=== PATIENT | female | born 1975 | race Caucasian/White ===

== ENCOUNTER → 2016-10-26 | Outpatient (CLI) | payer BC ==
--- NOTE | 2016-10-26 10:24 | MA ---
Screening Digital Mammogram With iCAD Analysis Clinical Indications: Routine screening. Her mother was diagnosed with breast cancer in her 50s. Technique: Standard cephalocaudal and mediolateral oblique projections were obtained. This examinatio n was processed by the iCAD computer aided detection system. Comparison: July 2014 and February 2009. Breast density: Type B; Scattered fibroglandular densities. Findings: CAD was reviewed. There is possible developing focal asymmetry in the central left breast o n the craniocaudal view. No suspicious microcalcifications are identified. The right breast is stable in appearance. Impression: Possible developing left breast asymmetry requires further evaluation, BI-RADS 0. Recommendation: Spot compression assessment of the left breast with ultrasound suggested if the abnor mality persists on diagnostic evaluation. [facility] will send a result letter to the patient. Negative mammography should not preclude additional workup of a clinically suspicious finding. The patient's information is entered into a reminder system with a target due date for her next mammo gram.
== END ==
LOC: BMCIMAGING 08:53
DX: Z12.31 Encounter for screening mammogram for malignant neoplasm of breast (principal); Z80.3 Family history of malignant neoplasm of breast; R92.8 Other abnormal and inconclusive findings on diagnostic imaging of breast
CPT/HCPCS: G0202

== ENCOUNTER → 2016-11-10 | Outpatient (CLI) | payer BC ==
--- NOTE | 2016-11-10 15:07 | MA ---
Left Diagnostic Mammogram Indication: Developing asymmetry central left breast. Mother with history of breast cancer in her 5 0s. Technique: Spot compressed CC, rolled medial and lateral CC views, and true lateral view. Comparison: Screening mammograms dating back to February 2009. Findings: The focal asymmetry resolves on the spot compressed view and does not persist on the veronica d CC views or true lateral view. Impression: Suspect dense superimposed fibroglandular tissue in the inner central left breast. BI-RADS 0: Needs additional imaging evaluation. Recommendation: Proceed with left breast ultrasound today to optimally characterize. [facility] will send a result letter to the patient.
--- NOTE | 2016-11-10 15:32 | US ---
Left Breast Ultrasound Indication: Asymmetry inner left breast likely represents dense superimposed fibroglandular tissue. E valuate for underlying mass. Technique: The inner left breast was scanned with a high-resolution linear transducer by the sonograp her and me. Correlation made with mammograms and targeted physical exam. Comparison: Screening and diagnostic mammograms from October and November 2016. Findings: Sonography reveals normal bands of fibroglandular tissue throughout the inner half of the l eft breast. No mass or lesion suspicious for malignancy. A small incidentally detected 3 mm cyst resi brittany along the margin of the areola at the 11 o'clock position. Impression: Benign density superimposed fibroglandular tissue inner left breast. No lesion suspiciou s for malignancy. BI-RADS 1: Negative. Recommendation: Resume routine annual screening in October 2017 unless otherwise clinically indicate d. The negative results and recommendations were discussed with the patient at time of study completion.
== END ==
LOC: BMCIMAGING 13:57
DX: R92.2 Inconclusive mammogram (principal)
CPT/HCPCS: G0206

== ENCOUNTER → 2017-07-18 | Outpatient (CLI) | payer BC, MEDICAID | LOC: BRMIMAGING 09:49 | PROVIDERS: ATTEND Internal Medicine Endocrinology, Diabetes & Metabolism | DX: Z13.820 Encounter for screening for osteoporosis (principal); M85.89 Other specified disorders of bone density and structure, multiple sites; E21.3 Hyperparathyroidism, unspecified ==

== ENCOUNTER 2019-03-10 13:32 | Emergency (ER) | payer MEDICAID | END 2019-03-10 16:20 | disposition home or self-care (01) ==

== ENCOUNTER 2019-03-18 12:43 | Day surgery (SDC) | payer MEDICAID | END 2019-03-18 18:00 | disposition home or self-care (01) | LOC: FSGY 12:43 ==